=== PATIENT | female | born 1990 | race American Indian/Alaskan Native ===

== ENCOUNTER 2017-08-24 08:05 | Outpatient (CLI) | payer MEDICAID ==
[2017-08-24] MEDS ORDERED: LACTATED RINGERS 500 ML IV ONE (08:19)
[2017-08-24 08:37] VITALS: BP 112/65
[2017-08-24 08:57] LABS: Bacteria,Urine 2+ /HPF (Negative); Bilirubin,Urine NEG (Negative); Blood,Urine SM (Negative); Color,Urine Yellow (Yellow); Protein,Urine <15 mg/dL mg/dL (Negative); Urobilinogen,Urine < 2.0 mg/dL (<2.0)
[2017-08-24] MEDS ORDERED: LACTATED RINGERS 1,000 ML IV SCH (09:00)
[2017-08-24] MEDS ORDERED: VISTARIL PO PRN ×2 (09:15→09:23)
[2017-08-24] MEDS ORDERED: VISTARIL ONE (09:24)
== END 2017-08-24 09:44 | disposition home or self-care (01) ==
LOC: TRG 08:05
PROVIDERS: ATTEND Obstetrics & Gynecology
DX: O47.1 False labor at or after 37 completed weeks of gestation (principal); Z3A.40 40 weeks gestation of pregnancy
CPT/HCPCS: 59025; 81001; Q0177